=== PATIENT | male | born 1960 | race Caucasian/White ===

== ENCOUNTER 2017-01-14 04:21 | Emergency (ER) | payer BC ==
[2017-01-14] MEDS: KETOROLAC 30 MG/ML VIAL IVP ONE (04:42)
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
[2017-01-14 04:59] LABS: BASO % 0.5 % (0-6); EOS % 4.1 % (0-6); GRAN % 51.4 % (47-80); HEMATOCRIT 48.9 % (42.0-52.0); HEMOGLOBIN 16.5 gm/dl (14.0-18.0); MEAN CELL VOLUME 88.3 fl (81-97); MEAN CORPUSCULAR HEMOGLOBIN 29.8 pg (27-33); MEAN CORPUSCULAR HGB CONC 33.7 g/dl (32-36); MEAN PLATELET VOLUME 10.2 fl (7.4-10.4); PLATELET COUNT 218 K/uL (130-400); RED BLOOD COUNT 5.54 M/uL (4.40-5.70); RED CELL DISTRIBUTION WIDTH 14.3 % (11.5-14.5); WHITE BLOOD COUNT W/O DIFF 8.8 K/uL (4.2-12.2)
[2017-01-14] MEDS: ORPHENADRINE CITRATE 60MG/2ML VIAL IVP ONE (05:15)
[2017-01-14 05:27] LABS: ALB/GLOB RATIO 1.6 (1.1-1.8); ALBUMIN 4.3 g/dL (4.0-5.0); ALKALINE PHOSPHATASE 122 U/L (40-129); ALT/SGPT 31 U/L (<41); AST/SGOT 31 U/L (10.0-50.0); BLOOD UREA NITROGEN 6 mg/dL (6-20); CREATININE 0.8 mg/dL (0.7-1.2); EST GLOMERULAR FILTRATION RATE > 60 mL/min; GLUCOSE,RANDOM 121 mg/dL (74-109); LIPASE 272 U/L (13-60)
[2017-01-14 05:36] LABS: URINE APPEARANCE CLEAR; URINE BILIRUBIN NEGATIVE (NEGATIVE); URINE BLOOD TRACE-I (NEGATIVE); URINE COLOR YELLOW; URINE GLUCOSE (UA) NEGATIVE (NEGATIVE); URINE KETONE NEGATIVE (NEGATIVE); URINE LEUKOCYTE ESTERASE NEGATIVE (NEGATIVE); URINE NITRITE NEGATIVE (NEGATIVE); URINE PROTEIN NEGATIVE (NEGATIVE); URINE UROBILINOGEN 0.2 E.U./dL (0.20 - 1.00)
[2017-01-14 05:39] LABS: URINE RBC 0 - 2 (NONE SEEN); URINE WBC 0 - 2 (0-2/hpf)
--- NOTE | 2017-01-16 08:52 | CT SCAN REPORT ---
EXAM: CT SCAN OF THE ABDOMEN AND PELVIS WITH CONTRAST HISTORY: GENERALIZED ABDOMINAL PAIN AND FLANK PAIN, GREATEST ON THE RIGHT. TECHNIQUE: Standard CT imaging of the abdomen and pelvis was performed with contrast. 80 ml of Omnipaque 300 were administered. Comparison: None. FINDINGS: There is a 3 mm noncalcified nodule within the right middle lobe. The lung bases are otherwise clear. There is mild fatty infiltration of the liver. The gallbladder, biliary tree, pancreas, spleen, and adrenal glands are normal. The kidneys and ureters are unremarkable. There is no urinary tract calculus, hydronephrosis, or abnormal perinephric fat stranding. The aorta is normal in caliber without dissection. There is no lymphadenopathy. The stomach and epigastrium are normal. The large and small bowel loops including the appendix are normal. There is no free intraperitoneal air or fluid. There is a small fat containing umbilical hernia. The urinary bladder is normal. The prostate gland is borderline enlarged. Degenerative changes are present within the spine. There are no acute osseous abnormalities. IMPRESSION: 1. NO ACUTE INTRAABDOMINAL PATHOLOGY. 2. MILD FATTY INFILTRATION OF THE LIVER. 3. 3 MM NONCALCIFIED NODULE WITHIN THE RIGHT MIDDLE LOBE. NO FURTHER FOLLOW- UP OF THIS NODULE IS REQUIRED UNLESS THE PATIENT IS AT HIGH RISK FOR MALIGNANCY , IN WHICH CASE, A TWELVE MONTH FOLLOW-UP WOULD BE RECOMMENDED. 4. SMALL FAT CONTAINING UMBILICAL HERNIA. [facility]: [id number] [facility]
== END 2017-01-14 06:10 | disposition home or self-care (01) ==
LOC: ER 04:21
DX: G89.11 Acute pain due to trauma (principal); R10.11 Right upper quadrant pain; R91.1 Solitary pulmonary nodule; Y92.009 Unspecified place in unspecified non-institutional (private) residence as the place of occurrence of the external cause; X50.9XXA Other and unspecified overexertion or strenuous movements or postures, initial encounter
CPT/HCPCS: 99284 ×2; 96374; 96375; 83690; 85025; 80053; 81001; 74177; Q9967; J1885; J2360

== ENCOUNTER 2018-10-18 14:53 | Emergency (ER) | payer SELFPAY ==
[2018-10-18] MEDS ORDERED: MORPHINE SULFATE 10MG/1ML **1ML VIAL IM ONE (15:51)
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
== END 2018-10-18 18:03 | disposition home or self-care (01) ==
LOC: ER 14:53
DX: S70.02XA Contusion of left hip, initial encounter (principal); S83.92XA Sprain of unspecified site of left knee, initial encounter; V23.4XXA Motorcycle driver injured in collision with car, pick-up truck or van in traffic accident, initial encounter; Y92.411 Interstate highway as the place of occurrence of the external cause; F17.210 Nicotine dependence, cigarettes, uncomplicated
CPT/HCPCS: 99283; 96372; 99284; 73564; 73521; J2270